=== PATIENT | male | born 1970 | race Caucasian/White ===

== ENCOUNTER 2021-04-20 12:41 | Emergency (ER) | payer OTHER, SELFPAY ==
[2021-04-20 13:11] VITALS: BP 138/88; PULSE 85; RESP 16; TEMP 36.5; O2SAT 100
[2021-04-20 13:15] VITALS: BP 138/88; PULSE 85; RESP 16; TEMP 36.5; O2SAT 100
--- NOTE | 2021-04-20 13:29 | ED.EXTPRO ---
HPI - Extremity Problem General Chief complaint: Extremity Problem,Nontraumatic Stated complaint: gout Source: patient Mode of arrival: ambulatory Limitations: no limitations History of Present Illness HPI Narrative: Patient presents for evaluation of pain in the right great toe since yesterday. He has a history of gout and this feels similar. Pain is constant rated 5 out of 10 in severity, without descriptive quality. No component. Movement and palpation makes the pain worse. He is not on allopurinol. He states indomethacin has been effective when taken in the past. Related Data Allergies Allergy/AdvReac Type Severity Reaction Status Date / Time No Known Allergies Allergy Verified 04/20/21 13:14 Review of Systems Review of Systems: CONSTITUTIONAL: Denies fever, chills, or sweats. EYES: Denies visual changes, redness, or discharge. ENT: Denies rhinorrhea, congestion, sore throat, or otalgia. CARDIOVASCULAR: Denies chest pain, palpitations, or edema. RESPIRATORY: Denies cough or dyspnea. GASTROINTESTINAL: Denies abdominal pain, nausea, vomiting, or diarrhea. GENITOURINARY: Denies dysuria or hematuria. SKIN: Reports redness in right great toe MUSCULOSKELETAL: Reports right great toe pain NEUROLOGIC: Denies headache, numbness, dizziness, or weakness. PSYCHIATRIC: Denies anxiety or depression. [facility], [facility] Past Medical History Medical History (Updated 04/20/21 @ 13:32 by Tacho Encinas, [facility] [employer]OST, ) Gout Surgical History Surgical History No pertinent past surgical history Family History Family History Father Hypertension Mother Hypertension Asthma Social History Social History Smoking status: Never smoker Alcohol intake: current Substance use type: marijuana Gender identity (if verbalized by the patient): Male Spiritual care concerns: No Exam Narrative: GENERAL: Well-appearing, well-nourished, and in no acute distress. HEAD: Normocephalic, atraumatic. EYES: PERRLA and EOMI. ENT: Nares clear, no rhinorrhea or epistaxis. Mucous membranes moist. Oropharynx without tonsillar hypertrophy exudate or other lesions. Bilateral TMs pearly taylor nonbulging NECK: Supple. No adenopathy or masses. No carotid bruits or JVD CHEST: Clear to auscultation. No respiratory distress. No wheezes rales or rhonchi HEART: Regular rate and rhythm. No murmur heard. Normal peripheral pulses. ABDOMEN: Soft, nontender, nondistended, normal active bowel sounds. EXTREMITIES: Tenderness noted to the proximal and distal phalanx of right great toe and over the MTP joint. Normal range of motion. No edema. SKIN: There is erythema to the distal phalanx of right great toe NEURO: No focal deficits. Alert and oriented x3. PSYCH: Normal mood and affect. Course Course Emergency Course: This is a 50-year-old male who presented with complaints of pain in the right great toe since yesterday. He states the pain is consistent with that previously experienced with gout. Declined imaging. I think this is reasonable as this is a classic gout presentation. Indomethacin has worked historically so we will provide him with a prescription for that. He should follow-up outpatient for further evaluation and treatment. I did recommend he speak with primary care about starting him on allopurinol. He should return for worsening symptoms. Patient agreed with plan of care. Level of Care: Express Care Visit Vital Signs Vital signs: Vital Signs Temperature 36.5 C 04/20/21 13:11 Pulse Rate 85 04/20/21 13:11 Respiratory Rate 16 04/20/21 13:11 Blood Pressure 138/88 04/20/21 13:11 Pulse Oximetry 100 04/20/21 13:11 Temperature 36.5 C 04/20/21 13:15 Pulse Rate 85 04/20/21 13:15 Respiratory Rate 16 04/20/21 13:15 Blood Pressure 138/88 04/20/21 13:1
== END 2021-04-20 13:43 | disposition home or self-care (01) ==
PROVIDERS: Emergency Provider Nurse Practitioner; PCP Internal Medicine
DX: M10.9 Gout, unspecified (principal)
CPT/HCPCS: 99213; G0463

== ENCOUNTER 2021-06-21 14:35 | Emergency (ER) | payer OTHER, SELFPAY ==
[2021-06-21 14:42] VITALS: BP 148/81; PULSE 99; RESP 16; TEMP 38.1; O2SAT 100
--- NOTE | 2021-06-21 15:18 | ED.URI ---
HPI - URI/Sore Throat General Chief Complaint: Upper Respiratory Infection Stated Complaint: ST/NECK & UPPER BACK PN/CHEST CONGESTION/KIRKPATRICK/WEAK Time Seen by Provider: 06/21/21 15:19 Source: patient, RN notes reviewed and old records reviewed Mode of arrival: ambulatory Limitations: no limitations History of Present Illness HPI Narrative: 51 year old male who presents to [facility] with complaints of 2 day history of sore throat and has been taking Zyrtec with throat sorer in morning and at night. Today he has been achy, had stiffness in his neck or back and also cough but is not bringing up any phlegm, states he feels lethargic. 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 Patient reports that he has had Covid vaccinations and Booster and also had flu shot this year. MD elicited complaint: fever, cough, sore throat and other (headache) Pertinent past history: pneumonia Onset (ago): day(s) Consistency: progressively worsening Severity: moderate Pain scale (0-10): 6 Able to tolerate fluids by mouth: Yes Related Data Allergies Allergy/AdvReac Type Severity Reaction Status Date / Time No Known Allergies Allergy Verified 06/12/21 10:41 Review of Systems Review of Systems: CONSTITUTIONAL: positive for fever, chills, or sweats. EYES: Denies visual changes, redness, or discharge. ENT: Positive rhinorrhea, congestion, sore throat, no otalgia. CARDIOVASCULAR: Denies chest pain, palpitations, or edema. RESPIRATORY: positive for cough denies dyspnea. GASTROINTESTINAL: Denies abdominal pain, nausea, vomiting, or diarrhea. GENITOURINARY: Denies dysuria or hematuria. SKIN: Denies rash or itching. MUSCULOSKELETAL: Denies any acute lumbar or thoracic back pain, positive for stiffness to neck and upper back, no other specific joints, generalized body aches reported NEUROLOGIC: Denies headache, numbness, or weakness. PSYCHIATRIC: Denies anxiety or depression. All systems reviewed & are unremarkable except as noted in HPI and below PMFSH Past Medical History Medical History Gout Surgical History Surgical History No pertinent past surgical history Family History Family History Father Hypertension Mother Hypertension Asthma Social History Social History Smoking status: Never smoker Alcohol intake: current Substance use type: marijuana Gender identity (if verbalized by the patient): Male Spiritual care concerns: No Comments My pain Exam Narrative: GENERAL: Well-appearing, well-nourished, and in no acute distress. HEAD: Normocephalic, atraumatic. EYES: PERRLA and EOMI. ENT: Nares light red,clear rhinorrhea no epistaxis. Mucous membranes moist.TM;s normal with good light reflex, throat mild redness with no lesions or exudates no tonsil swelling, post nasal drainage. NECK: Supple.no lymphadenopathy CHEST: Clear to auscultation. No respiratory distress. cough non productive, SAO2 100% on room air HEART: Regular rate and rhythm. No murmur heard. Normal peripheral pulses. ABDOMEN: Soft, nontender, nondistended, normal active bowel sounds. EXTREMITIES: Normal range of motion. No edema. SKIN: Warm, dry, no rash. NEURO: No focal deficits. Alert and oriented x3. Course Course Level of Care: Express Care Visit Vital Signs Vital signs: Vital Signs Temperature 38.1 C H 06/21/21 14:42 Pulse Rate 99 06/21/21 14:42 Respiratory Rate 16 06/21/21 14:42 Blood Pressure 148/81 H 06/21/21 14:42 Pulse Oximetry 100 06/21/21 14:42 Temperature 38.1 C H 06/21/21 14:42 Pulse Rate 99 06/21/21 14:42 Respiratory Rate 16 06/21/21 14:42 Blood Pressure 148/81 H 06/21/21 14:42 Pulse Oximetry 100 06/21/21 14:42 MDM - URI/Sore Throat Differenti
--- NOTE | 2021-06-21 17:16 | ED.URI ---
HPI - URI/Sore Throat General Chief Complaint: Upper Respiratory Infection Stated Complaint: ST/NECK & UPPER BACK PN/CHEST CONGESTION/KIRKPATRICK/WEAK Time Seen by Provider: 06/21/21 15:19 Source: patient, RN notes reviewed and old records reviewed Mode of arrival: ambulatory Limitations: no limitations Related Data Allergies Allergy/AdvReac Type Severity Reaction Status Date / Time No Known Allergies Allergy Verified 06/12/21 10:41 Review of Systems Review of Systems: CONSTITUTIONAL: Denies fever, chills, or sweats. EYES: Denies visual changes, redness, or discharge. ENT: Denies rhinorrhea, congestion, sore throat, or otalgia. CARDIOVASCULAR: Denies chest pain, palpitations, or edema. RESPIRATORY: Denies cough or dyspnea. GASTROINTESTINAL: Denies abdominal pain, nausea, vomiting, or diarrhea. GENITOURINARY: Denies dysuria or hematuria. SKIN: Denies rash or itching. MUSCULOSKELETAL: Denies back pain, joint pain, or myalgia. NEUROLOGIC: Denies headache, numbness, or weakness. PSYCHIATRIC: Denies anxiety or depression. All systems reviewed & are unremarkable except as noted in HPI and below PMFSH Past Medical History Medical History Gout Surgical History Surgical History No pertinent past surgical history Family History Family History Father Hypertension Mother Hypertension Asthma Social History Social History Smoking status: Never smoker Alcohol intake: current Substance use type: marijuana Gender identity (if verbalized by the patient): Male Spiritual care concerns: No Comments At time of signature, agree with nursing past medical, surgical, social and family history. There is no relevant family history pertinent to the presenting complaint Course Vital Signs Vital signs: Vital Signs Temperature 38.1 C H 06/21/21 14:42 Pulse Rate 99 06/21/21 14:42 Respiratory Rate 16 06/21/21 14:42 Blood Pressure 148/81 H 06/21/21 14:42 Pulse Oximetry 100 06/21/21 14:42 Temperature 38.1 C H 06/21/21 14:42 Pulse Rate 99 06/21/21 14:42 Respiratory Rate 16 06/21/21 14:42 Blood Pressure 148/81 H 06/21/21 14:42 Pulse Oximetry 100 06/21/21 14:42 MDM - URI/Sore Throat Differential Diagnosis Differential diagnosis: Likely upper respiratory infection, sinusitis, viral infection and other Lab Data Labs: Influenza A Screen Negative Reference Range: Negative Influenza B Screen Negative Reference Range: Negative Discharge Plan Discharge Clinical Impression: Upper respiratory infection with cough and congestion Patient Disposition: Home, Self-Care Condition: Stable Instructions: Antibiotic Form, Upper Respiratory Infection (ED) Additional Instructions: Increase fluids especially juices and water [id number] cough and cold medicine of your choice for your symptoms Delsym or Robitussin for cough Tylenol or ibuprofen for any fever pain Zyrtec Claritin or Mitra daily Steroids as directed--take with food heat to the face 20-30 minutes 4-6 times a day for pain Salt water gargles, throat lozenges or throat sprays as desired Antibiotic as directed--finished the medication If your symptoms persist, change or worsen significantly before you can contact your personal physician then please, without delay, go to the emergency department for further evaluation. Follow-up with PCP in 7-10 days or sooner if needed Follow up with PCP soon in regards to your blood pressure which is elevated above threshold for referral. Blood pressure above 120/80 may indicate pre-hypertension. Prescriptions: New amoxicillin 875 mg tablet 875 mg
== END 2021-06-21 15:32 | disposition home or self-care (01) ==
PROVIDERS: Emergency Provider Registered Nurse; PCP Internal Medicine
DX: J06.9 Acute upper respiratory infection, unspecified (principal); R05.9 Cough, unspecified; M10.9 Gout, unspecified
CPT/HCPCS: 87804; 99213; G0463

== ENCOUNTER 2021-10-14 01:51 | Day surgery (SDC) | payer OTHER, SELFPAY ==
[2021-09-27 13:11] VITALS: BMI 22.8
[2021-10-14 06:17] VITALS: BP 135/94; PULSE 76; RESP 17; TEMP 36.3; O2SAT 100; BMI 22.5
[2021-10-14] MEDS: LACTATED RINGERS 1,000 ML 150 ML IV CONT (06:31)
--- NOTE | 2021-10-14 07:16 | WPDANESEPPF ---
Anes - Initial Pre Proc Eval Procedure: Operation Date: 10/14/21 07:30 Proposed Procedures p Screening Colonoscopy - Diaz Ulloa MD Date/Time: 10/14/21 07:16 Surgeon: Diaz Ulloa MD Pre Op Diagnosis: neoplasm screening Patient Data Age: 51 Gender: M Height: 1.73 m Weight: 67.3 kg Last Vital Signs Temp 36.3 C L 10/14/21 06:17 Pulse 76 10/14/21 06:17 Resp 17 10/14/21 06:17 BP 135/94 H 10/14/21 06:17 Pulse Ox 100 10/14/21 06:17 O2 Del Method Room Air 10/14/21 06:17 Allergies Allergy/AdvReac Type Severity Reaction Status Date / Time broccoli Allergy Other Verified 10/14/21 06:14 Home Medications Medication Instructions Recorded Confirmed Type valacyclovir 1 gram tablet 2,000 mg PO Q12H #4 tabs 08/16/21 10/14/21 Rx (Valtrex) allopurinol 100 mg tablet 100 mg PO DAILY #30 tabs 09/02/21 10/14/21 Rx Patient hx anesthesia problems: none Family hx anesthesia problems: none Results Review: All pre-operative results and documents have been reviewed as part of the pre-operative evaluation. [facility] Past Medical History Medical History Gout Surgical History Surgical History No pertinent past surgical history Family History Family History Father Hypertension Mother Hypertension Asthma Social History Social History Smoking status: Never smoker Alcohol intake: never Substance use: never Substance use type: marijuana Living arrangements: with family Gender identity (if verbalized by the patient): Male Spiritual care concerns: No Anes - Eval Final PreProcedure Day of Procedure 10/14/21 07:16 Patient weight: normal Heart: regular rate and rhythm Lungs: clear to auscultation and normal air movement Airway: Mallampati scale class II Neurological: alert and oriented Last oral intake: >/= 8 hours ASA classification: II Emergent: no Anesthetic plan: proceed Anesthesia type and monitoring: general GIVS Results Review: All pre-operative results and documents have been reviewed as part of the pre-operative evaluation. Informed Consent: The patient's anesthetic plan and its attendant risks and benefits were discussed with the patient/family/POA. Questions were solicited and answers provided to the satisfaction of the patient/family/POA.
--- NOTE | 2021-10-14 07:25 | PM.HPGS ---
History of Present Illness History of Present Illness Consent: Risks, benefits, and alternatives have been discussed and questions answered. Patient agrees to proceed with procedure. Chief complaint: neoplasm screening Narrative: Carlos Jameson is a 51 year old male here for first screening colonoscopy Review of Systems Constitutional: Constitutional: Denies headache(s) and Denies weakness Eyes: Eyes: Denies blurry vision ENT: Reports Normal hearing present, Denies headache(s) and Denies neck pain Cardiovascular: Cardiovascular: Denies chest pain and Denies dyspnea Respiratory: Respiratory: Denies dyspnea Gastrointestinal: Gastrointestinal: Reports no additional gastrointestinal complaints Genitourinary: Genitourinary: Denies dysuria Musculoskeletal: Musculoskeletal: Denies neck pain Integumentary/Breasts: Skin/Breast: Denies dry skin Neurologic: Reports Normal hearing present, Denies headache(s) and Denies weakness Psychiatric: Psychiatric: Denies anxiety Endocrine: Endocrine: Denies change in body appearance Hematologic/Lymphatic: Hematologic/Lymphatic: Denies easy bleeding Allergic/Immunologic: Allergic/Immunologic: Denies urticaria PMFSH Past Medical History Medical History Gout Surgical History Surgical History No pertinent past surgical history Family History Family History Father Hypertension Mother Hypertension Asthma Social History Social History Smoking status: Never smoker Alcohol intake: never Substance use: never Substance use type: marijuana Living arrangements: with family Gender identity (if verbalized by the patient): Male Spiritual care concerns: No Meds Home Medications and Allergies Home Medications Medication Instructions Recorded Confirmed Type valacyclovir 1 gram tablet 2,000 mg PO Q12H #4 tabs 08/16/21 10/14/21 Rx (Valtrex) allopurinol 100 mg tablet 100 mg PO DAILY #30 tabs 09/02/21 10/14/21 Rx Allergies Allergy/AdvReac Type Severity Reaction Status Date / Time broccoli Allergy Other Verified 10/14/21 06:14 Vital Signs Vital Signs - 24 hr 10/14/21 06:17 Temperature 97.3 F L Pulse Rate 76 Respiratory Rate 17 Blood Pressure 135/94 H Pulse Oximetry 100 Oxygen Delivery Room Air Exam Const: General: comfortable and no acute distress HENMT: General nose exam: Normal nares present Eyes: General: appearance normal, both eyes and all related structures Neck: Neck: no JVD Resp: Auscultation: clear to auscultation bilaterally Cardio: Rate: regular rate Rhythm: regular rhythm GI: Inspection: non-distended GI Palp: Yes Soft to palpation Skin: General skin exam: normal color Neuro: General: gait normal Speech: normal speech Extrem: General: normal to inspection Psych: Mental Status: mental status grossly normal Assessment and Plan Assessment and plan (1) Encounter for screening colonoscopy: Code(s): Z12.11 - Encounter for screening for malignant neoplasm of colon Status: Acute Assessment and Plan: colonoscopy
[2021-10-14 07:51] VITALS: BP 114/63; PULSE 70; RESP 14; O2SAT 99
[2021-10-14 08:01] VITALS: BP 121/82; PULSE 69; RESP 21; O2SAT 100
[2021-10-14 08:11] VITALS: BP 134/90; PULSE 70; RESP 20; O2SAT 100
== END 2021-10-14 08:22 | disposition home or self-care (01) ==
PROVIDERS: PCP Internal Medicine; Visit Provider Internal Medicine Gastroenterology
PROC: 0DJD8ZZ Inspection of Lower Intestinal Tract, Via Natural or Artificial Opening Endoscopic (ICD-10-PCS; CPT 45378; principal; 2021-10-14 07:30)
DX: Z12.11 Encounter for screening for malignant neoplasm of colon (principal); D12.5 Benign neoplasm of sigmoid colon; D12.3 Benign neoplasm of transverse colon; K57.30 Diverticulosis of large intestine without perforation or abscess without bleeding; K64.8 Other hemorrhoids; M10.9 Gout, unspecified; F12.90 Cannabis use, unspecified, uncomplicated
CPT/HCPCS: 45385; 88305; J2704; J7120

== ENCOUNTER 2022-12-30 16:00 | Emergency (ER) | payer OTHER, SELFPAY ==
--- NOTE | ~2022-12-30 | XR_ITS ---
EXAMINATION: [id number] INDICATION: Left chest pain TECHNIQUE: A frontal view of the chest and 3 views of the left ribs were obtained. COMPARISON: None. FINDINGS: The lungs are free of acute opacities. No pleural effusion or pneumothorax. The cardiomedia stinal silhouette is normal. No displaced rib fracture is identified. IMPRESSION: 1. No acute cardiopulmonary abnormality or evidence of displaced rib fracture. Reviewed, dictated and finalized at location F.
--- NOTE | 2022-12-30 16:04 | ED.BACK ---
HPI - Back Pain/Injury General Chief Complaint: Back Pain/Injury Stated Complaint: Chest/Back pain Source: patient and RN notes reviewed Mode of arrival: ambulatory Limitations: no limitations History of Present Illness HPI Narrative: Patient is a 52-year-old male who presents to the [facility] with complaints left rib pain. Patient states that on Thursday, he leaned over the left side of a chair. Patient states that he struck his left ribs on the arm of the chair. He felt and heard a pop at that time. It was followed by sudden onset of aching pain. He reports constant aching pain with intermittent sharp pains that occur with movement, coughing, breathing, and laughing. States that the pain increased today. He denies difficulty breathing or shortness of breath. He does not appear in any acute distress. Related Data Allergies Allergy/AdvReac Type Severity Reaction Status Date / Time broccoli Allergy Other Verified 12/30/22 16:25 Review of Systems Review of Systems: CONSTITUTIONAL: Denies fever, chills, or sweats. EYES: Denies visual changes, redness, or discharge. ENT: Denies otalgia and sore throat CARDIOVASCULAR: Denies chest pain, palpitations, or edema. RESPIRATORY: Denies cough or dyspnea. GASTROINTESTINAL: Denies abdominal pain, nausea, vomiting, or diarrhea. GENITOURINARY: Denies dysuria or hematuria. SKIN: Denies rash or itching. MUSCULOSKELETAL: Denies myalgia. Reports left rib pain. NEUROLOGIC: Denies headache, numbness, or weakness. Pertinent positives per HPI. [facility] Past Medical History Medical History Gout Surgical History Surgical History No pertinent past surgical history Family History Family History Father Hypertension Mother Hypertension Asthma Social History Social History Smoking status: Never smoker Alcohol intake: never Substance use: never Substance use type: marijuana Living arrangements: with family Gender identity (if verbalized by the patient): Male Spiritual care concerns: No Comments At the time of my signature, I reviewed and agree with the nursing past medical, surgical, social, and family history. There is no relevant family history pertinent to the patient complaint. Exam Narrative: GENERAL: This is a well-nourished, well-developed patient, in no apparent distress. HEAD: normocephalic, atraumatic. EYES: PERRL. Sclera clear/white. Vision is grossly intact. EARS: External ears normal, auditory canals clear and without drainage, TMs normal without perforation. Hearing grossly intact. NOSE: External nose normal with no obvious nasal discharge, nares without redness, no rhinorrhea. THROAT: Mucous membranes moist, posterior pharynx clear. NECK: Neck supple, non-tender without lymphadenopathy, masses or thyromegaly. CARDIOVASCULAR: Regular rate and rhythm without murmurs, gallops, or rubs. RESPIRATORY: Clear to auscultation. Breath sounds equal bilaterally. No wheezes, rales, or rhonchi. GASTROINTESTINAL: Abdomen soft, non-tender, nondistended. Bowel sounds are active. No hepato-splenomegaly, or palpable masses. No guarding. SKIN: warm, intact with no suspicious lesions or rash, good texture and turgor. NEURO: awake, alert, and oriented to person, place and time. There were no obvious focal neurologic abnormalities. EXTREMITIES: No clubbing, cyanosis, or edema. No joint tenderness, effusion, or edema noted. BACK: Left rib tenderness upon palpation. Course Course Level of Care: Express Care Visit Vital Signs Vital signs: Vital Signs Temperature 98.1 F 12/30/22 16:05 Pulse Rate 77 12/30/22 16:05 Respiratory Rate 16 12/30/22 16:05 Blood Pressure 152/83 H 12/30/22 16:05 Pulse Oximetry 100 12/30/22 16:05
[2022-12-30 16:05] VITALS: BP 152/83; PULSE 77; RESP 16; TEMP 36.7; O2SAT 100
== END 2022-12-30 17:00 | disposition home or self-care (01) ==
PROVIDERS: Emergency Provider Nurse Practitioner; PCP Family Medicine
DX: S20.212A Contusion of left front wall of thorax, initial encounter (principal); W22.03XA Walked into furniture, initial encounter; M10.9 Gout, unspecified
CPT/HCPCS: 71101; 99213; G0463